=== PATIENT | female | born 1965 | race African-American/Black ===

== ENCOUNTER 2021-06-12 13:07 | Inpatient (IN) | payer OTHER ==
[2021-06-12] MEDS ORDERED: cloNIDine HCL 0.1 MG TABLET PO PRN (16:08)
[2021-06-12] MEDS ORDERED: NICOTINE 10 MG CARTRIDGE (INHALER) IH PRN (16:08)
[2021-06-12] MEDS ORDERED: MAG HYDROX/AL HYDROX/SIMETH 30 ML UNIT-DOSE CUP PO PRN (16:08)
[2021-06-12] MEDS ORDERED: IBUPROFEN 400 MG TABLET (FP) PO PRN (16:08)
[2021-06-12] MEDS ORDERED: ACETAMINOPHEN 325 MG TABLET (FP) PO PRN ×2 (16:08)
[2021-06-12] MEDS ORDERED: ONDANSETRON *ODT* 4 MG TABLET SL PRN (16:08)
[2021-06-12] MEDS ORDERED: MENTHOL/PHENOL 1 EACH UD MM PRN (16:08)
[2021-06-12] MEDS ORDERED: LOPERAMIDE HCL 2 MG CAPSULE PO PRN (16:08)
[2021-06-12] MEDS ORDERED: MAGNESIUM CITRATE 300 ML BOTTLE PO PRN (16:08)
[2021-06-12] MEDS ORDERED: BISMUTH SUBSALICYLATE 524 MG/30 ML PO PRN (16:08)
[2021-06-12] MEDS ORDERED: METHOCARBAMOL 500 MG TABLET PO PRN (16:08)
[2021-06-12] MEDS ORDERED: MAGNESIUM HYDROX 2400MG/30ML ORAL SUSPENSION 30 ML CUP PO PRN (16:08)
[2021-06-12] MEDS ORDERED: ALBUTEROL SO4 HFA INHALER IH PRN (16:13)
[2021-06-12 18:55] VITALS: BMI 25.4
[2021-06-12] MEDS: hydrOXYzine PAMOATE 25 MG CAPSULE (FP) PO SCH ×2 (19:29→23:22)
[2021-06-12] MEDS ORDERED: methaDONE HCL 10 MG TABLET (FOR DETOX USE ONLY) PO ONE (19:45)
[2021-06-12] MEDS: CYPROHEPTADINE HCL 4 MG TABLET PO SCH (23:22)
[2021-06-12] MEDS: MELATONIN 5 MG TABLETS PO SCH (23:22)
[2021-06-12] MEDS: THIAMINE HCL 100 MG TABLET (FP) PO SCH (23:22)
[2021-06-13] MEDS: CYPROHEPTADINE HCL 4 MG TABLET PO SCH ×3 (06:10→22:28)
[2021-06-13] MEDS: hydrOXYzine PAMOATE 25 MG CAPSULE (FP) PO SCH ×5 (06:10→23:14)
[2021-06-13] MEDS ORDERED: methaDONE HCL 10 MG TABLET (FOR DETOX USE ONLY) ONE (08:52)
[2021-06-13] MEDS ORDERED: NALOXONE (NARCAN) HCL 4 MG/0.1 ML SPRAY NS ONE (10:15)
[2021-06-13] MEDS: PRENATAL VITAMINS W/ FOLIC ACID TABLET (FP) PO SCH (10:26)
[2021-06-13 10:42] LABS: HEMATOCRIT 41.6 % (32.4-45.2); HEMOGLOBIN 13.3 GM/dL (10.7-15.3); MCH 28.3 pg (25.7-33.7); MEAN CELL VOLUME 88.6 fl (80-96); MEAN PLT VOLUME 8.1 fl (7.5-11.1); PLATELET COUNT 220 10^3/uL (134-434); RDW 13.4 % (11.6-15.6); WHITE BLOOD COUNT 3.9 K/mm3 (4.0-10.0)
[2021-06-13 10:43] LABS: BLOOD UREA NITROGEN 13.2 mg/dL (7-18); CALCIUM 9.2 mg/dL (8.5-10.1)
[2021-06-13 10:44] LABS: ALBUMIN 3.2 g/dl (3.4-5.0)
[2021-06-13 10:47] LABS: CREATININE 1.1 mg/dL (0.55-1.3)
[2021-06-13 10:48] LABS: BILIRUBIN,TOTAL 0.6 mg/dL (0.2-1); TOT PROT 6.9 g/dl (6.4-8.2)
[2021-06-13 11:41] LABS: HIV INTERPRETATION NEGATIVE (NEGATIVE)
[2021-06-13] MEDS: MELATONIN 5 MG TABLETS PO SCH (22:28)
[2021-06-13] MEDS: traZODone HCL 50 MG TABLET (FP) PO SCH (22:28)
[2021-06-13] MEDS: OLANZapine 10 MG TABLET PO SCH (22:28)
[2021-06-13] MEDS: THIAMINE HCL 100 MG TABLET (FP) PO SCH (22:28)
[2021-06-14] MEDS: hydrOXYzine PAMOATE 25 MG CAPSULE (FP) PO SCH ×5 (07:04→22:14)
[2021-06-14] MEDS: CYPROHEPTADINE HCL 4 MG TABLET PO SCH ×3 (07:04→22:14)
[2021-06-14] MEDS ORDERED: methaDONE HCL 10 MG TABLET (FOR DETOX USE ONLY) PO ONE (10:00)
[2021-06-14] MEDS: PRENATAL VITAMINS W/ FOLIC ACID TABLET (FP) PO SCH (10:04)
[2021-06-14] MEDS: ESCITALOPRAM OXALATE 10 MG TABLET PO SCH (10:05)
[2021-06-14 10:08] LABS: SARS-CoV-2 NAA Not Detected (Not Detected)
[2021-06-14] MEDS: OLANZapine 10 MG TABLET PO SCH (22:13)
[2021-06-14] MEDS: MELATONIN 5 MG TABLETS PO SCH (22:13)
[2021-06-14] MEDS: THIAMINE HCL 100 MG TABLET (FP) PO SCH (22:13)
[2021-06-14] MEDS: traZODone HCL 50 MG TABLET (FP) PO SCH (22:14)
[2021-06-15] MEDS: CYPROHEPTADINE HCL 4 MG TABLET PO SCH ×3 (06:54→22:06)
[2021-06-15] MEDS: hydrOXYzine PAMOATE 25 MG CAPSULE (FP) PO SCH ×5 (06:54→22:06)
[2021-06-15] MEDS ORDERED: methaDONE HCL 10 MG TABLET (FOR DETOX USE ONLY) ONE (09:02)
[2021-06-15] MEDS: PRENATAL VITAMINS W/ FOLIC ACID TABLET (FP) PO SCH (10:09)
[2021-06-15] MEDS: ESCITALOPRAM OXALATE 10 MG TABLET PO SCH (10:10)
[2021-06-15] MEDS: NICOTINE 10 MG CARTRIDGE (INHALER) IH SCH (17:37)
[2021-06-15] MEDS: THIAMINE HCL 100 MG TABLET (FP) PO SCH (22:06)
[2021-06-15] MEDS: MELATONIN 5 MG TABLETS PO SCH (22:06)
[2021-06-15] MEDS: traZODone HCL 50 MG TABLET (FP) PO SCH (22:06)
[2021-06-15] MEDS: OLANZapine 10 MG TABLET PO SCH (22:06)
[2021-06-16] MEDS: hydrOXYzine PAMOATE 25 MG CAPSULE (FP) PO SCH ×5 (07:01→22:04)
[2021-06-16] MEDS: CYPROHEPTADINE HCL 4 MG TABLET PO SCH ×3 (07:01→22:04)
[2021-06-16] MEDS ORDERED: methaDONE HCL 10 MG TABLET (FOR DETOX USE ONLY) PO ONE (10:00)
[2021-06-16] MEDS: PRENATAL VITAMINS W/ FOLIC ACID TABLET (FP) PO SCH (10:21)
[2021-06-16] MEDS: ESCITALOPRAM OXALATE 10 MG TABLET PO SCH (10:21)
[2021-06-16] MEDS: NICOTINE 10 MG CARTRIDGE (INHALER) IH SCH (10:38)
[2021-06-16] MEDS: OLANZapine 10 MG TABLET PO SCH (22:03)
[2021-06-16] MEDS: THIAMINE HCL 100 MG TABLET (FP) PO SCH (22:03)
[2021-06-16] MEDS: traZODone HCL 50 MG TABLET (FP) PO SCH (22:03)
[2021-06-16] MEDS: MELATONIN 5 MG TABLETS PO SCH (22:03)
[2021-06-17] MEDS: hydrOXYzine PAMOATE 25 MG CAPSULE (FP) PO SCH ×5 (07:45→22:11)
[2021-06-17] MEDS: CYPROHEPTADINE HCL 4 MG TABLET PO SCH ×3 (07:45→22:10)
[2021-06-17] MEDS: ESCITALOPRAM OXALATE 10 MG TABLET PO SCH (11:36)
[2021-06-17] MEDS: PRENATAL VITAMINS W/ FOLIC ACID TABLET (FP) PO SCH (11:37)
[2021-06-17] MEDS: NICOTINE 10 MG CARTRIDGE (INHALER) IH SCH (11:37)
[2021-06-17] MEDS: traZODone HCL 50 MG TABLET (FP) PO SCH (22:10)
[2021-06-17] MEDS: THIAMINE HCL 100 MG TABLET (FP) PO SCH (22:10)
[2021-06-17] MEDS: OLANZapine 10 MG TABLET PO SCH (22:10)
[2021-06-17] MEDS: MELATONIN 5 MG TABLETS PO SCH (22:11)
[2021-06-18] MEDS: CYPROHEPTADINE HCL 4 MG TABLET PO SCH (06:26)
[2021-06-18] MEDS: hydrOXYzine PAMOATE 25 MG CAPSULE (FP) PO SCH ×2 (06:26→10:22)
[2021-06-18 07:26] VITALS: TEMP 97.1
[2021-06-18 09:10] VITALS: BP 106/60; PULSE 84
[2021-06-18] MEDS: ESCITALOPRAM OXALATE 10 MG TABLET PO SCH (10:21)
[2021-06-18] MEDS: NICOTINE 10 MG CARTRIDGE (INHALER) IH SCH (10:21)
[2021-06-18] MEDS: PRENATAL VITAMINS W/ FOLIC ACID TABLET (FP) PO SCH (10:21)
[2021-06-18] MEDS ORDERED: hydrOXYzine PAMOATE 25 MG CAPSULE (FP) PO PRN (12:35)
== END 2021-06-18 10:33 | disposition other institution (70) | DRG 773 ==
LOC: YASAS 13:07 → Y3N 18:42
PROVIDERS: ADMIT Allergy & Immunology; ATTEND Allergy & Immunology
PROC: HZ2ZZZZ Detoxification Services for Substance Abuse Treatment (ICD-10-PCS; principal; 2021-06-12)
DX: F11.23 Opioid dependence with withdrawal (principal); F10.230 Alcohol dependence with withdrawal, uncomplicated; F14.20 Cocaine dependence, uncomplicated; F17.210 Nicotine dependence, cigarettes, uncomplicated; F31.81 Bipolar II disorder; F19.24 Other psychoactive substance dependence with psychoactive substance-induced mood disorder; F41.9 Anxiety disorder, unspecified; G47.00 Insomnia, unspecified; J45.909 Unspecified asthma, uncomplicated; Z86.19 Personal history of other infectious and parasitic diseases
CPT/HCPCS: 36415; 80053; 85027; 86593; 86780; 87389; 87811; C9803; U0003; U0005

== ENCOUNTER 2022-04-16 18:30 | Inpatient (IN) | payer OTHER ==
[2022-04-16 19:41] VITALS: BMI 26.7
[2022-04-16] MEDS ORDERED: ALBUTEROL SO4 HFA INHALER IH PRN (19:58)
[2022-04-16] MEDS ORDERED: DICYCLOMINE HCL 10 MG CAPSULE PO PRN (19:59)
[2022-04-16] MEDS ORDERED: ONDANSETRON *ODT* 4 MG TABLET SL PRN (19:59)
[2022-04-16] MEDS ORDERED: LOPERAMIDE HCL 2 MG CAPSULE PO PRN (19:59)
[2022-04-16] MEDS ORDERED: POLYETHYLENE GLYCOL (HEALTHYLAX) 3350 17 GM PACKET PO PRN (19:59)
[2022-04-16] MEDS ORDERED: BISMUTH SUBSALICYLATE 524 MG/30 ML PO PRN (19:59)
[2022-04-16] MEDS ORDERED: MAG HYDROX/AL HYDROX/SIMETH 30 ML UNIT-DOSE CUP PO PRN (19:59)
[2022-04-16] MEDS ORDERED: ACETAMINOPHEN 325 MG TABLET (FP) PO PRN (19:59)
[2022-04-16] MEDS ORDERED: IBUPROFEN 600 MG TABLET (FP) PO PRN (19:59)
[2022-04-16] MEDS ORDERED: NICOTINE POLACRILEX 2 MG GUM BUC PRN (19:59)
[2022-04-16] MEDS ORDERED: MAGNESIUM HYDROX 2400MG/30ML ORAL SUSPENSION 30 ML CUP PO PRN (19:59)
[2022-04-16] MEDS ORDERED: P-EPHED 60MG/TRIPROLIDI 2.5MG TABLET PO PRN (19:59)
[2022-04-16] MEDS ORDERED: IBUPROFEN 400 MG TABLET (FP) PO PRN (19:59)
[2022-04-16] MEDS: MELATONIN 5 MG TABLETS PO SCH (22:11)
[2022-04-16] MEDS: THIAMINE HCL 100 MG TABLET (FP) PO SCH (22:11)
[2022-04-16] MEDS: guaiFENesin 200 MG/10 ML 10 ML UNIT-DOSE CUPS PO PRN (22:12)
[2022-04-16] MEDS: hydrOXYzine PAMOATE 25 MG CAPSULE (FP) PO PRN (22:12)
[2022-04-16] MEDS: ACETAMINOPHEN 325 MG TABLET (FP) PO PRN (22:36)
[2022-04-16] MEDS: diazePAM 5 MG TABLET PO PRN (22:47)
[2022-04-17] MEDS: diazePAM 5 MG TABLET PO PRN (03:34)
[2022-04-17] MEDS: METHOCARBAMOL 500 MG TABLET PO PRN ×2 (03:34→22:05)
[2022-04-17] MEDS: guaiFENesin 200 MG/10 ML 10 ML UNIT-DOSE CUPS PO PRN ×3 (03:35→19:13)
[2022-04-17] MEDS ORDERED: diazePAM 5 MG TABLET PO PRN (07:23)
[2022-04-17] MEDS: diazePAM 5 MG TABLET PO SCH ×3 (10:22→22:05)
[2022-04-17] MEDS: PRENATAL VITAMINS W/ FOLIC ACID TABLET (FP) PO SCH (10:23)
[2022-04-17 11:01] LABS: HEMATOCRIT 39.1 % (32.4-45.2); HEMOGLOBIN 12.3 GM/dL (10.7-15.3); MCH 27.8 pg (25.7-33.7); MCHC 31.4 g/dl (32.0-36.0); MEAN CELL VOLUME 88.4 fl (80-96); MEAN PLT VOLUME 8.1 fl (7.5-11.1); PLATELET COUNT 261 10^3/uL (134-434); RBC 4.42 M/mm3 (3.60-5.2); RDW 14.4 % (11.6-15.6); WHITE BLOOD COUNT 5.8 K/mm3 (4.0-10.0)
[2022-04-17 11:17] LABS: ALBUMIN 3.3 g/dl (3.4-5.0); BLOOD UREA NITROGEN 11.6 mg/dL (7-18)
[2022-04-17 11:19] LABS: CREATININE 1.3 mg/dL (0.55-1.3)
[2022-04-17 11:20] LABS: TOT PROT 6.8 g/dl (6.4-8.2)
[2022-04-17 11:22] LABS: BILIRUBIN,TOTAL 0.5 mg/dL (0.2-1)
[2022-04-17] MEDS: BENZOCAINE/MENTHOL (CHLORASEPTIC ) LOZENGE MM PRN ×2 (12:43→20:44)
[2022-04-17 13:02] LABS: HIV INTERPRETATION NEGATIVE (NEGATIVE)
[2022-04-17] MEDS: ACETAMINOPHEN 325 MG TABLET (FP) PO PRN (17:33)
[2022-04-17] MEDS: THIAMINE HCL 100 MG TABLET (FP) PO SCH (22:05)
[2022-04-17] MEDS: OLANZapine 10 MG TABLET PO SCH (22:05)
[2022-04-17] MEDS: MELATONIN 5 MG TABLETS PO SCH (22:05)
[2022-04-18] MEDS: diazePAM 5 MG TABLET PO SCH ×4 (06:35→22:14)
[2022-04-18] MEDS: ESCITALOPRAM OXALATE 10 MG TABLET PO SCH (10:06)
[2022-04-18] MEDS: PRENATAL VITAMINS W/ FOLIC ACID TABLET (FP) PO SCH (10:06)
[2022-04-18] MEDS: guaiFENesin 200 MG/10 ML 10 ML UNIT-DOSE CUPS PO PRN ×2 (14:49→22:14)
[2022-04-18] MEDS: THIAMINE HCL 100 MG TABLET (FP) PO SCH (21:22)
[2022-04-18] MEDS: traZODone HCL 50 MG TABLET (FP) PO SCH (21:22)
[2022-04-18] MEDS: OLANZapine 10 MG TABLET PO SCH (21:22)
[2022-04-18] MEDS: MELATONIN 5 MG TABLETS PO SCH (21:22)
[2022-04-18] MEDS: METHOCARBAMOL 500 MG TABLET PO PRN (21:23)
[2022-04-19] MEDS: diazePAM 5 MG TABLET PO SCH ×3 (06:10→21:45)
[2022-04-19] MEDS: ESCITALOPRAM OXALATE 10 MG TABLET PO SCH (10:51)
[2022-04-19] MEDS: PRENATAL VITAMINS W/ FOLIC ACID TABLET (FP) PO SCH (10:52)
[2022-04-19] MEDS: traZODone HCL 50 MG TABLET (FP) PO SCH (21:45)
[2022-04-19] MEDS: MELATONIN 5 MG TABLETS PO SCH (21:45)
[2022-04-19] MEDS: THIAMINE HCL 100 MG TABLET (FP) PO SCH (21:45)
[2022-04-19] MEDS: OLANZapine 10 MG TABLET PO SCH (21:45)
[2022-04-19] MEDS: METHOCARBAMOL 500 MG TABLET PO PRN (21:46)
[2022-04-20] MEDS: diazePAM 5 MG TABLET PO SCH ×2 (06:50→17:11)
[2022-04-20] MEDS: ESCITALOPRAM OXALATE 10 MG TABLET PO SCH (10:44)
[2022-04-20] MEDS: PRENATAL VITAMINS W/ FOLIC ACID TABLET (FP) PO SCH (10:44)
[2022-04-20] MEDS: THIAMINE HCL 100 MG TABLET (FP) PO SCH (21:44)
[2022-04-20] MEDS: traZODone HCL 50 MG TABLET (FP) PO SCH (21:44)
[2022-04-20] MEDS: OLANZapine 10 MG TABLET PO SCH (21:44)
[2022-04-20] MEDS: MELATONIN 5 MG TABLETS PO SCH (21:44)
[2022-04-20] MEDS: hydrOXYzine PAMOATE 25 MG CAPSULE (FP) PO PRN (21:45)
[2022-04-21] MEDS ORDERED: diazePAM 5 MG TABLET PO ONE (06:00)
[2022-04-21 06:34] VITALS: RESP 18
[2022-04-21] MEDS: PRENATAL VITAMINS W/ FOLIC ACID TABLET (FP) PO SCH (09:28)
[2022-04-21] MEDS: ESCITALOPRAM OXALATE 10 MG TABLET PO SCH (09:28)
[2022-04-21 09:34] VITALS: BP 119/79; PULSE 83; TEMP 97.8
== END 2022-04-21 09:41 | disposition other institution (70) | DRG 774 ==
LOC: YASAS 18:30 → Y3N 20:55
PROVIDERS: ADMIT Allergy & Immunology; ATTEND Surgery
PROC: HZ2ZZZZ Detoxification Services for Substance Abuse Treatment (ICD-10-PCS; principal; 2022-04-16)
DX: F10.230 Alcohol dependence with withdrawal, uncomplicated (principal); F14.20 Cocaine dependence, uncomplicated; F13.20 Sedative, hypnotic or anxiolytic dependence, uncomplicated; F17.210 Nicotine dependence, cigarettes, uncomplicated; F31.9 Bipolar disorder, unspecified; F19.24 Other psychoactive substance dependence with psychoactive substance-induced mood disorder; G47.00 Insomnia, unspecified; Z86.19 Personal history of other infectious and parasitic diseases; Z85.42 Personal history of malignant neoplasm of other parts of uterus; Z90.710 Acquired absence of both cervix and uterus
CPT/HCPCS: 36415; 80053; 85027; 86593; 86780; 87389; C9803-CS; U0003; U0005